=== PATIENT | male | born 1995 | race Caucasian/White ===

== ENCOUNTER → 2021-11-05 | Outpatient (CLI) | payer OTHER ==
[~2021-11-05] MED LIST: IBUPROFEN600 MG PO; MORPHINE SULFAT15 MG PO; NORFLEX 100 MG100 MG PO
== END ==
LOC: KOH-I 12:53
DX: M51.27 Other intervertebral disc displacement, lumbosacral region (principal); M48.07 Spinal stenosis, lumbosacral region
CPT/HCPCS: 72146; 72148